=== PATIENT | female | born 1955 | race Caucasian/White ===

== ENCOUNTER 2019-10-28 18:10 | Inpatient (IN) | payer OTHER ==
[~2019-10-28] VITALS: Ht 157.5 cm; Wt 68.5 kg
--- NOTE | ~2019-10-28 | HC ---
[facility] [place] [address] CONSULTATION Name: CATHERINE TOVAR Room #: 200-I [facility] IN .R.#: [id number] Admission: 10/28/19 Attend Phys: New Baca MD Discharge: 10/31/19 Date of : 53 Report #: [id number] THIS REPORT FOR: cc: KOMAL - Kenisha family physician/PCP KOMAL - No family physician/PCP Citlalli Mack MD ~ CC: New SAUCEDA physician/PCP DATE OF SERVICE: 10/30/2019 REQUESTING PHYSICIAN: Dr. Garzon. REASON FOR CONSULTATION: Burkitt lymphoma. HISTORY OF PRESENT ILLNESS: The patient is a pleasant 64-year-old woman who was recently diagnosed with Burkitt lymphoma. She was hospitalized at [facility] and she was diagnosed with Burkitt lymphoma, she started chemotherapy. She is receiving intrathecal chemotherapy as well. She was doing fine until yesterday when she felt very weak. She reports that she has been having black tarry stools last week or so. She was admitted to the hospital with profound anemia. She was given PRBCs for anemia. Platelets were low at 15. I recommended to transfuse platelets as well. She received platelets. She is in telemetry unit now. Hematology/Oncology consultation requested. She is doing well. She does not have complaints of fever or chills. Denies dysuria. She has not had any GI bleeding since she has been in the hospital. She had EGD done, which showed small ulcers. The patient is on PPI, Carafate and still in the hospital for observation. She does not have complaints of nausea or vomiting. PAST MEDICAL HISTORY: Significant for Burkitt lymphoma and ____ otherwise she has been healthy. SOCIAL HISTORY: Does not smoke, does not drink. . is at bedside, very supportive. FAMILY HISTORY: Noncontributory. REVIEW OF SYSTEMS: See above. PHYSICAL EXAMINATION: GENERAL: Reveals is well-developed, well-nourished female, not in acute distress. VITAL SIGNS: Blood pressure 121/55, heart rate 74, respirations 18. HEENT: ____. NECK: Supple. There is no supraclavicular or axillary lymphadenopathy. [facility] [address] [place] [address] CONSULTATION Name: CATHERINE TOVAR Room #: 200-I [facility] IN [facility].#: [id number] Admission: 10/28/19 Attend Phys: New Baca MD Discharge: 10/31/19 Date of : 53 Report #: [id number] EXTREMITIES: Lower extremities, no edema. SKIN: Exam does not reveal rash. MENTAL STATUS: Alert and oriented x 3. LABORATORY DATA: White count 0.9, hemoglobin 8.5, platelets are 78, ____, 96% lymphocytes, 2% monocytes, 2% eosinophils. Iron 172, TIBC 183, % saturation 94. Ferritin 394, folate 19.1, vitamin B12 is 331. RADIOLOGY: Chest x-ray, no acute process. ASSESSMENT AND PLAN: 1. Burkitt lymphoma status post first cycle of chemotherapy, scheduled for second cycle of therapy tomorrow ____. 2. Anemia, post-hemorrhagic, ____. Thank you very much for allowing me to participate in the care of this patient. By: 1333 1422 Citlalli Makc MD /nt
[2019-10-28 18:13] VITALS: BP 97/57
[2019-10-28] MEDS ORDERED: ALLOPURINOL 30300 M1 PO (19:31)
[2019-10-28] MEDS ORDERED: ACYCLOVIR 800800 MG PO (19:31)
[2019-10-28] MEDS ORDERED: ZYRTEC10 M5 PO (19:32)
[2019-10-28] MEDS ORDERED: DIFLUCAN200 MG PO (19:32)
[2019-10-28] MEDS ORDERED: NEURONTIN300 MG PO (19:32)
[2019-10-28] MEDS ORDERED: LEVAQUIN 750 M750 MG PO (19:32)
[2019-10-28] MEDS ORDERED: SKELAXIN 800 M800 M1 PO (19:32)
[2019-10-28] MEDS ORDERED: ROXICODONE5 M2 PO (19:33)
[2019-10-28] MEDS ORDERED: ONDANSETRON ODT8 MG PO (19:33)
[2019-10-28] MEDS ORDERED: FLOMAX0.4 MG PO (19:34)
[2019-10-28] MEDS ORDERED: BACTRIM 400-801 EACH PO (19:35)
[2019-10-28] MEDS ORDERED: BREO ELLIPTA 11 EACH INH (19:36)
[2019-10-28 19:39] LABS: MCH 29.5 pg (26.0-34.0); MCHC 34.1 g/dL (28.0-37.0); MCV 86.8 fL (80.0-100.0); RDW 12.1 % (10.5-14.5)
[2019-10-28 19:44] LABS: HEMATOCRIT 18.2 % (37.0-47.0); HEMOGLOBIN 6.2 gm/dL (12.0-15.0); WBC 0.3 thou/uL (4.0-11.0)
[2019-10-28 19:45] LABS: ANION GAP 9 mmol/L (7-16); BUN 20 mg/dL (7-18); CALCIUM 7.6 mg/dL (8.5-10.1); CHLORIDE 98 mmol/L (98-107); CO2 23 mmol/L (21-32); CREATININE 0.7 mg/dL (0.6-1.0); GLUCOSE 177 mg/dL (74-106); POTASSIUM 3.3 mmol/L (3.5-5.1); SODIUM 130 mmol/L (136-145)
[2019-10-28 19:49] LABS: APTT 31.6 Seconds (24.5-32.8); INR 1.1; PROTIME 11.4 Seconds (9.3-11.4)
[2019-10-28 19:55] LABS: ALBUMIN 2.4 g/dL (3.4-5.0); DIRECT BILIRUBIN < 0.1 mg/dL (<0.1-0.2); SGOT 13 U/L (15-37); SGPT 22 U/L (30-65); TOTAL BILIRUBIN 0.7 mg/dL (0.2-1.0); TOTAL PROTEIN 4.9 g/dL (6.4-8.2); TROPONIN-I <0.06 ng/mL (<0.06)
[2019-10-28 20:05] LABS: PLATELET ESTIMATE DECREASED
[2019-10-28 20:06] LABS: PLATELET COUNT 10 thou/uL (150-400)
[2019-10-28 21:30] VITALS: BP 105/59
--- NOTE | 2019-10-28 22:02 | NUR ---
blood cultures collected at this time. One is drawn from R upper arm and one from L forearm.
[2019-10-28] MEDS ORDERED: FLONASE 0.05%50 MCG NARES (22:06)
[2019-10-28 22:25] VITALS: BP 107/47
[2019-10-28 22:30] VITALS: BP 125/59
[2019-10-29] VITALS (13 sets, daily range): BP systolic 107–120; BP diastolic 45–67
[2019-10-29 00:22] LABS: URINE BILIRUBIN NEGATIVE (Negative); URINE BLOOD NEGATIVE (Negative); URINE CLARITY CLEAR; URINE COLOR YELLOW; URINE GLUCOSE-RANDOM* NEGATIVE (Negative); URINE KETONES 1+ (Negative); URINE LEUKOCYTES-REFLEX NEGATIVE (Negative); URINE NITRITE-REFLEX NEGATIVE (Negative); URINE PROTEIN (DIPSTICK) NEGATIVE (Negative); URINE SPECIFIC GRAVITY >= 1.030 (1.005-1.035); URINE UROBILINOGEN 0.2 E.U./dl (0.2-1.0)
--- NOTE | 2019-10-29 04:32 | NUR ---
PATIENT ADMITTED FROM ER AND ASSUMED CARE AT APPROXIMATELY 2230. PATIENT PLACED ON NEUTROPENIC AND CHEMOTHERAPY PRECAUTIONS. PATIENT IN NEGATIVE PRESSURE ROOM. PATIENT CURRENTLY TRANSFUSING ONE UNIT OF BLOOD AND STATES THIS IS HER FIRST TIME RECEIVING BLOOD. PATIENT APPEARS TO BE TOLERATING WELL. WILL CONTINUE TO MONITOR.
[2019-10-29 09:21] LABS: MCV 86.2 fL (80.0-100.0)
[2019-10-29 09:23] LABS: MCH 29.7 pg (26.0-34.0); MCHC 34.5 g/dL (28.0-37.0); RBC 2.04 mil/uL (4.20-5.00); RDW 12.2 % (10.5-14.5)
[2019-10-29 09:31] LABS: HEMOGLOBIN 6.1 gm/dL (12.0-15.0); WBC 0.5 thou/uL (4.0-11.0)
[2019-10-29 09:32] LABS: HEMATOCRIT 17.6 % (37.0-47.0)
[2019-10-29 09:57] LABS: % SATURATION 94 % (20-39); CALCIUM 7.8 mg/dL (8.5-10.1); CREATININE 0.6 mg/dL (0.6-1.0); IRON 172 ug/dL (50-170); POTASSIUM 3.6 mmol/L (3.5-5.1); TIBC 183 ug/dL (250-450)
[2019-10-29 10:58] LABS: FOLIC ACID 19.1 ng/mL (8.6-58.9)
--- NOTE | 2019-10-29 11:51 | EKG ---
[facility] [place] [address] ELECTROCARDIOGRAM REPORT Name: CATHERINE TOVAR Room #: 200-I [facility] IN M.R.#: [id number] Admission: 10/28/19 Attend Phys: Lisandro Garzon MD Discharge: Date of : 53 Report #: [id number] THIS REPORT FOR: cc: KOMAL - Kenisha family physician/PCP KOMAL - No family physician/PCP Mil Jesus MD ~ THIS REPORT FOR: //name// [facility] ED Test Date: 2019-10-28 Test Time: 18:47:15 Pat Name: CATHERINE TOVRA Department: Room: [facility] Gender: F Engineer Systems: martine : 1955 Requested By: Meli Murray Order Number: [id number] MD: Mil Jesus Measurements Intervals [place] Rate: 109 P: 63 MI: 105 QRS: 68 QRSD: 86 T: -24 QT: 318 QTc: 429 Interpretive Statements Sinus tachycardia Low voltage, precordial leads Borderline T abnormalities, inferior leads No previous ECG available for comparison Electronically Signed On 10-29-2019 11:50:57 CDT by Mil Jesus [email or web address] <ELECTRONICALLY SIGNED> By: Mil Jesus MD 10/29/19 1150 1847 46 Mil Jesus MD /EPI
--- NOTE | 2019-10-29 17:17 | NUR ---
ASSUMED CARE AT SHIFT CHANGE, ALERT AND ORINEDTED X4 AND DENIES ANY DISCOMFORT. ST ON THE MONITOR AND OTHER VSS. ASSESSMENT DOCUMENTED, AND PATIENT TOLERATED CLEAR LIQUID DIET. 2 UNITS OF RBC,1 UNIT PLT GIVEN, NO S&S OF REACTION NOTED. NPO AFTER MN FOR EGD IN THE MORNING, AND WILL CONTINUE WITH POC.
[2019-10-29 21:11] LABS: HEMATOCRIT 25.2 % (37.0-47.0); MCH 29.4 pg (26.0-34.0); MCHC 33.9 g/dL (28.0-37.0); MCV 86.5 fL (80.0-100.0); PLATELET COUNT 78 thou/uL (150-400); RBC 2.91 mil/uL (4.20-5.00); RDW 13.4 % (10.5-14.5)
[2019-10-29 21:23] LABS: HEMOGLOBIN 8.5 gm/dL (12.0-15.0)
[2019-10-29 21:24] LABS: WBC 0.9 thou/uL (4.0-11.0)
[2019-10-29 23:28] LABS: PLATELET ESTIMATE DECREASED
[2019-10-30 03:45] VITALS: BP 101/80
--- NOTE | 2019-10-30 05:19 | NUR ---
ASSUMED CARE OF PATIENT AT 1900. ASSESSMENT COMPLETED. PATIENT DENIES ANY PAIN. IV PROTONIX, NS AND ABX. AMBULATING SBA TO BSC WITHOUT ANY DIFFICULTY. DENIES ANY NAUSEA OR VOMITING. AFTER 2030 CBC, CALL PLACED TO DR. MEREDITH WHO DETERMINED 10/29 AM PLATELET TRANSFUSION WAS NOT NEEDED. REPEAT H&H AFTER DAY SHIFT TRANSFUSION. NPO AFTER MIDNIGHT FOR 10/29 EGD. PATIENT TO CONTINUE WITH POC.
[2019-10-30 07:02] VITALS: BP 111/66
[2019-10-30 12:09] VITALS: BP 121/55
[2019-10-30 15:13] VITALS: BP 121/55
--- NOTE | 2019-10-30 18:16 | NUR ---
ASSUMED CARE AT SHIFT CHANGE, ALERT AND ORIENTED X4, AND ASSESSMENT DOCUMENTED. VSS AND AFEBRILE. TOLERATING PO DIET AND REPORTED MINIMUM PAIN TO ABD WITH FOOD INTAKE. DENIES DIZZINESS AND UP WALKING THE HALLWAY. PLAN TO DISCHARGE PATIENT IF CBC WITHIN NORMAL, AND WILL CONTINUE WITH POC.
[2019-10-30 20:19] VITALS: BP 143/75
[2019-10-31] VITALS (7 sets, daily range): BP systolic 111–142; BP diastolic 36–62
[2019-10-31 04:52] LABS: HEMOGLOBIN 7.4 gm/dL (12.0-15.0)
[2019-10-31 04:53] LABS: HEMATOCRIT 21.9 % (37.0-47.0); MCH 29.4 pg (26.0-34.0); MCHC 33.9 g/dL (28.0-37.0); MCV 86.8 fL (80.0-100.0); RBC 2.53 mil/uL (4.20-5.00); RDW 13.3 % (10.5-14.5)
[2019-10-31 04:59] LABS: WBC 1.1 thou/uL (4.0-11.0)
--- NOTE | 2019-10-31 05:09 | NUR ---
PATIENT IS ADVANCING IN HER CARE PLAN. VITAL SIGNS STABLE WITH PATIENT HAVING NO COMPLAINTS OF PAIN OR NAUSEA. FULLY ORIENTED, PATIENT IS ABLE TO CALL APPROPRIATELY FOR NEEDS AND PARTICIPATE IN CARE. NO EVIDENCE OF BLEEDING, PATIENT HAD NO REPORTS OF SYNCOPE THROUGHOUT THE NIGHT. UP AD TEDYD THROUGHOUT THE NIGHT, PATIENT IS STRONG AND BALANCED WHEN AMBULATING. PATIENT IS ANXIOUS FOR POTENTIAL DISCHARGE TODAY. CONTINUE PLAN OF CARE.
--- NOTE | 2019-10-31 11:47 | NUR ---
ASSUMED CARE AT SHIFT CHANGE, VSS AND AFEBRILE. NSR ON THE MONITOR, FFP GIVEN AND PATIENT TOLERATED THE INFUSION. NO ACUTE DISTRESS NOTED AND WILL CONTINUE TO MONITOR.
[2019-10-31] MEDS ORDERED: LEVAQUIN 500 M500 M3 PO (13:09)
[2019-10-31] MEDS ORDERED: PANTOPRAZOLE SO40 M1 PO (13:09)
[2019-10-31] MEDS ORDERED: CARAFATE 1 GM TA1 G1 PO (13:09)
[2019-10-31 14:00] LABS: HEMATOCRIT 23.6 % (37.0-47.0); MCH 29.4 pg (26.0-34.0); MCV 86.4 fL (80.0-100.0); RBC 2.73 mil/uL (4.20-5.00); RDW 13.3 % (10.5-14.5)
[2019-10-31 14:04] LABS: WBC 1.8 thou/uL (4.0-11.0)
--- NOTE | 2019-11-09 08:17 | HC ---
[facility] [place] [address] CONSULTATION Name: CATHERINE TOVAR Room #: 200-I [facility] IN .R.#: [id number] Admission: 10/28/19 Attend Phys: New Baca MD Discharge: 10/31/19 Date of : 53 Report #: [id number] THIS REPORT FOR: cc: KOMAL - No family physician/PCP KOMAL - No family physician/PCP Jamison Alcala MD ~ CC: Dr. Vaughn Alcantara, [facility] Dr. Ruth Baca [facility] physician/PCP Lisandro Garzon DATE OF SERVICE: 10/29/2019 HISTORY OF PRESENT ILLNESS: The patient is a 64-year-old female who was diagnosed with Burkitt's lymphoma 2 weeks ago. She was hospitalized at [facility] for a week at which time she was diagnosed and then started chemotherapy. She states she was discharged this last Thursday and was fairly stable at that time. She does report some dark stools over the last 1-2 weeks. No previous history of GI bleed. Her hemoglobin on admission here was 6.2. She received 1 unit of packed cells yesterday. Her hemoglobin is 6.1 today. Her white blood cell count currently is 0.5. Her platelet count is 40 and that is after platelet transfusion. The patient was seen in the outpatient Oncology center yesterday and her white blood cell count yesterday was 0.4, hemoglobin 7.9, platelet count was 17,000. I reviewed her labs from 10/26/2019. Her hemoglobin at that time was 11.2, white blood cell count was 4.3 and her platelet count was 84,000. She has also had an LP with intrathecal chemotherapy at during that time. The patient denies any history of GI bleed in the past. Yesterday was feeling very weak in general and dizzy. She had a syncopal episode at home. Also had an episode of hematemesis, which she states was a large amount of bright red blood. She spoke to her oncologist and they had told her to go to the nearest Emergency Room. She does report diarrhea again over the last 1-2 weeks. She states her last colonoscopy was in 2019 in which diverticulosis was noted, otherwise negative. She has never had an upper endoscopy. She does report some mild dysphagia. She denies any NSAID use recently. She denies any abdominal pain. The patient was hypotensive on admission yesterday with blood pressure 97/57 after IV fluids and blood. Her blood pressure today is 111/66, her pulse is 106. She had COVID testing at [facility] x 2 that was reportedly negative. She denies any cough currently. She has been having fevers, which was one of her original symptoms prior to her diagnosis of lymphoma. The patient was started on a Protonix drip in the Emergency Room last evening. She denies any further episodes of nausea or vomiting or hematemesis at this time. She has been on clear liquids. PAST MEDICAL HISTORY: Burkitt's lymphoma, apparently involving her spine and bone marrow, status post chemotherapy last week at [facility], also with [address] [address] CONSULTATION Name: CATHERINE TOVAR Room #: 200-I [facility] IN M.R.#: [id number] Admission: 10/28/19 Attend Phys: New Baca MD Discharge: 10/31/19 Date of : 53 Report #: [id number] LP and intrathecal chemotherapy, pancytopenia, history of asthma, laparoscopy for endometriosis in the past, arthroscopy of her left knee. MEDICATIONS: On admission, Skelaxin, acyclovir, allopurinol, Zyrtec, Diflucan, Neurontin, Levaquin, Zofran p.r.n., oxycodone p.r.n., Flomax, Bactrim, fluticasone inhaler and Flonase nasal spray. ALLERGIES: INDOMETHACIN AND PENICILLIN. REVIEW OF SYSTEMS: As per HPI. FAMILY HISTORY: Negative for colon cancer. SOCIAL HISTORY: She denies any tobacco or alcohol use currently. PHYSICAL EXAMINATION: VITAL SIGNS: Temperature is 99.2, pulse 106, blood pressure 111/66, respiratory rate is 18, O2 sats are 99% on room air. GENERAL: She is alert and oriented x 3, in no acute distress. HEENT: Sclerae nonicteric. Oropharynx clear. NECK: Supple, without lymphadenopathy. CARDIOVASCULAR: Regular rate and rhythm. CHEST: Clear to auscultation bilaterally. ABDOMEN: Soft, nontender, nondistended, normoactive bowel sounds. EXTREMITIES: No cyanosis, clubbing or edema. LABORATORY DATA: Sodium 134, potassium 3.6, chloride 103, bicarbonate 24, BUN 10, creatinine 0.6, AST 13, total bilirubin 0.7, alkaline phosphatase 75, ALT is 22, total protein 4.9, albumin 2.4. Troponin less than 0.06. Iron 172, TIBC is 184. INR 1.1. WBC is 0.5, up from 0.3 yesterday. Hemoglobin 6.1 and that is after transfusion was 6.2 yesterday. MCV 86.2, platelet count is 40, this is up from 10 yesterday after transfusion. ASSESSMENT AND PLAN: Upper gastrointestinal bleed. The patient has complex case as she has Burkitt's lymphoma, just recently started chemotherapy and has significant pancytopenia. I had a long discussion today with the patient, I would recommend proceeding with an upper endoscopy for further evaluation, especially since she has had a significant drop in her hemoglobin, although this may be from chemotherapy partly. She had obvious hematemesis yesterday. Her platelet count has improved after transfusion. She remains significantly neutropenic. We will proceed with COVID testing today and plan on upper endoscopy tomorrow. Agree with another unit of packed cells and platelets today and continue to monitor labs closely. I explained to the patient if she starts bleeding significantly, this may need to be done more emergently. However, in absence of a COVID test, this would require intubation, which the patient would be increased risk for bleeding due to her pancytopenia as well as infection. [facility] [address] [place] [address] CONSULTATION Name: CATHERINE TOVAR Room #: 200-I [facility] IN M.R.#: [id number] Admission: 10/28/19 Attend Phys: New Baca MD Discharge: 10/31/19 Date of : 53 Report #: [id number] Plan is to continue clear liquids today, PPI drip and n.p.o. after midnight for upper endoscopy tomorrow as long as her numbers are stable. She agrees with this plan. Thank you for allowing me to participate in her care. <ELECTRONICALLY SIGNED> By: Jamison Alcala MD 11/09/19 0817 1026 1041 Jamison Alcala, /krishna
--- NOTE | 2019-11-09 08:17 | P ---
[facility] [place] [address] PROCEDURE REPORT Name: CATHERINE TOVAR Room #: 200-I [facility] IN .R.#: [id number] Admission: 10/28/19 Attend Phys: New Baca MD Discharge: 10/31/19 Date of : 53 Report #: [id number] THIS REPORT FOR: cc: FAM - No family physician/PCP FAM - No family physician/PCP Jamison Alcala MD ~ CC: Dr. Ruth SAUCEDA physician/PCP Lisandro Alcantara MD DATE OF SERVICE: 10/30/2019 PROCEDURE PERFORMED: Upper endoscopy. HISTORY OF PRESENT ILLNESS: The patient is a 64-year-old female recently diagnosed with Burkitt's lymphoma, started chemotherapy last week, had a syncopal episode at home and hematemesis. She had significant pancytopenia on admission. Hemoglobin was initially 6.2. She was transfused 1 unit, repeat was 6.1. She had another unit yesterday. Today, her hemoglobin is 8.5. Her WBC on admission was 0.3, today is 0.9. Platelet count on admission was 10. She has been transfused 2 units of platelets. Her platelet count today is 78. She denies any further nausea, vomiting or hematemesis. She has had a melanotic stool last evening. She denies any abdominal pain. Plan is for upper endoscopy. She is on a Protonix drip. DESCRIPTION OF PROCEDURE: The risks and benefits of the procedure were explained to the patient. Those risks including but not limited to bleeding, perforation and the risk of sedation. She understood these risks and gave informed consent. Sedation was given using propofol per anesthesia. Next, using a standard Olympus upper endoscope, the scope was placed in the patient's mouth and advanced under direct vision through the esophagus, stomach and into the second portion of the duodenum. The esophagus was normal throughout. The GE junction was normal. In the stomach, there were three ulcers in the gastric body. The smallest was approximately 5 mm and clean white based. The two larger were approximately 1.5-2 cm, one in particular had an old blood with an adherent type of clot. I did not proceed with cautery or biopsies due to the patient's low platelet count. There was no active bleeding. The other ulcer was fairly clean white based. The gastric antrum was normal. The pylorus was normal and patent. The duodenal bulb, first and second portion were all normal. The scope was then withdrawn and the procedure terminated. The patient tolerated the procedure well. IMPRESSION: Three gastric ulcers, source of recent gastrointestinal bleed. No active bleeding at this time. [address] [address] PROCEDURE REPORT Name: CATHERINE TOVAR Room #: 200-I [facility] IN M.R.#: [id number] Admission: 10/28/19 Attend Phys: New Baca MD Discharge: 10/31/19 Date of : 53 Report #: [id number] RECOMMENDATIONS: 1. Continue Protonix drip today and then will change to b.i.d. PPI. 2. Add Carafate. 3. We will advance diet. 4. Check stool for H. pylori antigen test. Thank you for allowing me to participate in her care. <ELECTRONICALLY SIGNED> By: Jamison Alcala MD 11/09/19 0817 1137 1153 Jamison Alcala MD /nt
== END 2019-10-31 16:40 | disposition home or self-care (01) | DRG 377 ==
LOC: ER 18:10 → 2N 20:44 → EROBS 20:44 → 2N 22:16
PROVIDERS: Emergency Medicine; Nurse Practitioner Family; Specialist; ADMIT Hospitalist; ATTEND Hospitalist
DX: K25.0 Acute gastric ulcer with hemorrhage (principal); D61.810 Antineoplastic chemotherapy induced pancytopenia; E43 Unspecified severe protein-calorie malnutrition; C83.70 Burkitt lymphoma, unspecified site; D62 Acute posthemorrhagic anemia; M25.562 Pain in left knee; J45.909 Unspecified asthma, uncomplicated; N80.9 Endometriosis, unspecified; I95.1 Orthostatic hypotension; D69.6 Thrombocytopenia, unspecified; Z20.828 Contact with and (suspected) exposure to other viral communicable diseases; Z68.27 Body mass index [BMI] 27.0-27.9, adult; Z79.2 Long term (current) use of antibiotics; Z79.891 Long term (current) use of opiate analgesic; Z79.899 Other long term (current) drug therapy; Z88.0 Allergy status to penicillin; Z88.8 Allergy status to other drugs, medicaments and biological substances
CPT/HCPCS: 10081; 62110; 62900

== ENCOUNTER → 2020-04-13 | Outpatient (CLI) | payer OTHER ==
[~2020-04-13] MED LIST: ACYCLOVIR 800800 MG PO; ALLOPURINOL 30300 M1 PO; BACTRIM 400-801 EACH PO; BACTRIM DS TAB1 EACH PO; BREO ELLIPTA 11 EACH INH; CARAFATE 1 GM TA1 G1 PO; CLARITIN10 M3 PO; DIFLUCAN200 MG PO; FERROUS SULFAT325 MG PO; FLOMAX0.4 MG PO; FLONASE 0.05%50 MCG NARES; LEVAQUIN 500 M500 M3 PO; LEVAQUIN 750 M750 MG PO; NEURONTIN300 MG PO; ONDANSETRON ODT8 MG PO; PANTOPRAZOLE SO40 M1 PO; POTASSIUM20 PO; PRILOSEC OTC20 MG PO; PROAIR HFA8.5 GM INH; ROXICODONE5 M2 PO; SKELAXIN 800 M800 M1 PO; VITAMIN C1000 MG PO; ZYRTEC10 M5 PO
== END ==
LOC: LAB 09:24
PROVIDERS: ATTEND Specialist
DX: Z01.812 Encounter for preprocedural laboratory examination (principal); Z20.828 Contact with and (suspected) exposure to other viral communicable diseases

== ENCOUNTER → 2020-04-18 | Outpatient (CLI) | payer OTHER ==
[~2020-04-18] VITALS: Ht 157.5 cm; Wt 64.0 kg
--- NOTE | 2020-04-20 08:59 | P ---
[facility] [place] [address] PROCEDURE REPORT Name: CATHERINE TOVAR [id number] Admission: 04/18/20 Attend Phys: Jamison Vargas Discharge: Date of : 53 Report #: [id number] THIS REPORT FOR: cc: Physician not on staff Physician not on staff Jamison Alcala MD ~ DATE OF SERVICE: 04/18/2020 PROCEDURE PERFORMED: Upper endoscopy with biopsies. HISTORY OF PRESENT ILLNESS: The patient is a 64-year-old female who underwent an upper endoscopy by myself on 10/30/2019. At that time, she had been recently diagnosed with Burkitt's lymphoma, started chemotherapy; had a syncopal episode as well as hematemesis. Her blood count showed a significant pancytopenia at that time. Hemoglobin initially was 6.2. She was transfused packed cells. Her platelet count at that time was 10,000. She also had melanotic stools. EGD showed 3 ulcers in the gastric body, ranging from 5 mm to 2 cm, one with old blood and an adherent clot noted. No active bleeding. The patient was started on PPI therapy and Carafate, which she continues at this time. She denies any further melanotic stools. No abdominal pain, no dysphagia, nausea or vomiting. Her most recent labs on 04/16/2020 show a hemoglobin of 11.7, white blood cell count 3.7, platelet count is 135,000. Plan is for repeat upper endoscopy. DESCRIPTION OF PROCEDURE: The risks and benefits of the procedure were explained to the patient, those risks including but not limited to bleeding, perforation and the risk of sedation. She understood these risks and gave informed consent. Sedation was given using propofol per anesthesia. Next, using a standard Olympus upper endoscope, the scope was placed in the patient's mouth and advanced under direct vision through the esophagus, stomach and into the second portion of the duodenum. The esophagus was normal throughout. The GE junction was normal. A mild gastritis was noted in the mid body of the stomach. No evidence of ulcerations or erosions were noted. No evidence of bleeding. Biopsies were obtained to rule out H. pylori. The pylorus was normal and patent. The duodenal bulb, first and second portion were all normal. The scope was then withdrawn and the procedure terminated. The patient tolerated the procedure well. IMPRESSION: 1. Mild gastritis. Previous ulcer is well healed. 2. Otherwise, normal upper endoscopy. RECOMMENDATIONS: 1. Await biopsy results. 2. Continue long-term daily PPI therapy. 3. Can discontinue Carafate at this time. [address] [address] PROCEDURE REPORT Name: CATHERINE TOVAR Room #: REG [facility] Larry#: [id number] Admission: 04/18/20 Attend Phys: Jamison Vargas Discharge: Date of : 53 Report #: [id number] Thank you for allowing me to participate in her care. <ELECTRONICALLY SIGNED> By: Jamison Alcala MD 04/20/20 0859 1053 1403 Jamison Alcala MD /nt
--- NOTE | 2020-04-20 16:06 | PATH ---
[facility] [address] [place] [address] PATHOLOGY RPT PROCEDURE Name: CATHERINE MCNULTY Room #: REG [facility] M.R.#: [id number] Admission: 04/18/20 Date of : 53 Discharge: Report #: [id number] Path Case #: [id number] [facility] Accession Number: [id number] . 01 Material submitted: . stomach - GASTRIC BX . 01 Clinical history: . R/O GASTRITIS AND H PYLORI, RECHECK ULCER/ANEMIA . 02 Diagnosis: Gastric mucosa, to rule out gastritis and H. pylori, endoscopic biopsy: - Moderate reactive gastropathy with mild chronic inflammation. - Negative for intestinal metaplasia or atrophy. - Negative for Helicobacter pylori (properly controlled immunohistochemical stain performed). (IUV:belt puncher; 04/20/2020) MBR 04/20/2020 1246 Local . 02 Electronically signed: . Bee Espinoza MD, Pathologist NPI- [id number] . 01 Gross description: . The specimen is received in formalin, labeled "Catherine Mcnulty, gastric BX" and consists of 4 fragments of pink-chauhan tissue measuring 1.0 x 0.6 x 0.3 cm in aggregate which are entirely submitted in A1. (SDY; 04/19/2020) SYU/SYU 04/19/2020 1620 Local . 02 Pathologist provided ICD-10: K31.9 . 02 CPT . 226103, I23710 Specimen Comment: A courtesy copy of this report has been sent to [phone], [phone] Specimen Comment: [id number] Specimen Comment: Report sent to / DR NEIL Performed at: [address], [place] [id number] MD Jules Hawk MD Phone: [phone] Performed at: [address] [id number] MD Bee Espinoza MD Phone: [phone]
== END | disposition home or self-care (01) ==
LOC: GI 09:08
PROVIDERS: ATTEND Specialist
DX: K31.9 Disease of stomach and duodenum, unspecified (principal); K29.50 Unspecified chronic gastritis without bleeding; J45.909 Unspecified asthma, uncomplicated; K21.9 Gastro-esophageal reflux disease without esophagitis; I10 Essential (primary) hypertension; Z98.890 Other specified postprocedural states; Z79.899 Other long term (current) drug therapy; Z85.71 Personal history of Hodgkin lymphoma; Z90.49 Acquired absence of other specified parts of digestive tract; Z98.41 Cataract extraction status, right eye; Z98.42 Cataract extraction status, left eye; Z88.0 Allergy status to penicillin; Z88.8 Allergy status to other drugs, medicaments and biological substances
CPT/HCPCS: 62110; 62900